=== PATIENT | female | born 1935 | race Hispanic/Latino ===

== ENCOUNTER 2017-01-30 10:06 | Outpatient (CLI) | payer MEDICARE ==
--- NOTE | 2017-01-30 15:40 | Cat Scan Report ---
CT angiography of the neck including 3-D reconstructed images. History: Carotid arterial occlusion. Findings: Minimal atheromatous plaque is seen in the aortic arch. The 3 great vessels are widely patent with minimal nonocclusive plaque seen in the distal common carotid arteries bilaterally. On the right, there is calcification at the carotid bulb with soft noncalcified plaque extending into the proximal internal carotid artery with 60% stenosis at this level. The distal internal carotid artery is normal. On the left, there is a minimal calcified plaque at the carotid bulb with no significant stenosis. The distal internal carotid artery is normal. The vertebral arteries are patent. There are no other significant findings. Impression: 1. 60% stenosis of the proximal left internal carotid artery. 2. Minimal stenosis of the left carotid bulb.
== END 2017-01-30 10:07 | disposition home or self-care (01) ==
LOC: CT 10:06
PROVIDERS: ATTEND Surgery Vascular Surgery
DX: E11.9 Type 2 diabetes mellitus without complications (principal); I65.23 Occlusion and stenosis of bilateral carotid arteries; I10 Essential (primary) hypertension
CPT/HCPCS: 36415; 70498; 82565; 84520; Q9967